=== PATIENT | male | born 1940 | race Caucasian/White ===

== ENCOUNTER 2018-12-24 10:22 | Emergency (ER) | payer MEDICARE ==
[2018-12-24 10:35] VITALS: RESP 18
[2018-12-24] MEDS ORDERED: methylPREDNISolone SOD SUCCI 125 MG/2 ML VIAL IM ONE (10:47)
[2018-12-24] MEDS ORDERED: FAMOTIDINE 20 MG TAB PO STA (10:47)
[2018-12-24] MEDS ORDERED: hydrOXYzine HCL 25 MG TAB PO STA (10:47)
--- NOTE | 2018-12-24 10:50 | ED ---
Skin/Abscess/FB HPI - General Chief complaint: Skin/Abscess/Foreign Body Stated complaint: Rash on head/back Time Seen by Provider: 12/24/18 10:43 Source: patient, RN notes reviewed Mode of arrival: ambulatory Limitations: no limitations - History of Present Illness Initial comments: 70-year-old male presents emergency Department chief complaint of rash. Patient states started couple days ago after using some new shampoo his never used before. Patient states primarily in the scalp states it's now, on his torso region. He states it's very itchy there is no pain associated with. Denies fevers or chills. Patient one dose of Benadryl and hydrocortisone cream. He did have some relief. Patient reports no fevers or chills. Patient offers no other complaints. - Related Data Home Medications Medication Instructions Recorded Confirmed Omeprazole [PriLOSEC] 20 mg PO DAILY 02/18/14 01/29/15 Terazosin [Hytrin] 2 mg PO HS 02/18/14 01/29/15 Gabapentin [Neurontin] 300 mg PO HS 09/13/14 01/29/15 Acetaminophen/Diphenhydramine 1 tab PO HS 09/19/14 01/29/15 [Tylenol PM 500-25mg] Melatonin 5 mg PO DAILY 01/29/15 01/29/15 Previous Rx's Medication Instructions Recorded Hydrocodone/Acetaminophen [[place] 1 - 2 each PO Q6HR PRN #30 tab 09/24/14 5-325] Amoxicillin/Potassium Clav 1 each PO Q12HR #20 tab 01/29/15 [Augmentin 875-125 Tablet] Famotidine [Pepcid] 20 mg PO BID #14 tablet 12/24/18 diphenhydrAMINE [Benadryl] 50 mg PO QID PRN #20 capsule 12/24/18 predniSONE 50 mg PO DAILY #5 tab 12/24/18 Allergies Allergy/AdvReac Type Severity Reaction Status Date / Time amoxicillin Allergy Rash/Hives Verified 12/24/18 10:35 Review of Systems ROS Statement: Those systems with pertinent positive or pertinent negative responses have been documented in the HPI. ROS Other: All systems not noted in ROS Statement are negative. Past Medical History Past Medical History: Asthma, Cancer, GERD/Reflux, Pneumonia, Prostate Disorder, Sleep Apnea/CPAP/BIPAP Additional Past Medical History / Comment(s): diverticulitis, KIDNEY STONES, ARTHRITIS, neuropathy, prostate cancer-brachytherapy radiation tx History of Any Multi-Drug Resistant Organisms: ESBL, Other MDRO Date of last positivie culture/infection: 01/29/2015 MDRO Pseudomonas; 02/25/2014 ESBL E.coli MDRO Source:: Urine-MDRO; Abdomen-ESBL Past Surgical History: No Surgical Hx Reported Additional Past Surgical History / Comment(s): colostomy, PICC line/removed Past Anesthesia/Blood Transfusion Reactions: No Reported Reaction Past Psychological History: No Psychological Hx Reported Smoking Status: Former smoker Past Alcohol Use History: Rare Past Drug Use History: None Reported - Past Family History Mother Family Medical History: AFIB, COPD Father Family Medical History: Hypertension, Myocardial Infarction ([place]) General Exam Limitations: no limitations General appearance: alert, in no apparent distress Head exam: Present: atraumatic, normocephalic. Absent: normal inspection (Diffuse erythema, small area of vesicles with papules) Eye exam: Present: normal appearance, PERRL, EOMI. Absent: scleral icterus, conjunctival injection, periorbital swelling ENT exam: Present: normal exam, normal oropharynx, mucous membranes moist Neck exam: Present: normal inspection, full ROM. Absent: tenderness, meningismus, lymphadenopathy Respiratory exam: Present: normal lung sounds bilaterally. Absent: respiratory distress, wheezes, rales, rhonchi, stridor Cardiovascular Exam: Present: regular rate, normal rhythm, normal heart sounds. Absent: systolic murmur, diastolic murmur, rubs, gallop, clicks Skin exam: Present: warm, dry, intact, normal color, rash (Primarily scalp, torso region there is small papules and vesicles, erythema consistent with contact dermatitis.) Course Vital Signs 12/24/18 10:34 Temperature 99.0 F Pulse Rate 79 Respiratory 18 Rate Blood Pressure 143/76 O2 Sat by Pulse 97 Oximetry Medical Decision Making - Medical Decision Making 78-year-old male presented for rash. Symptoms are more consistent with a contact dermatitis primarily in the torso and scalp region where the shampoo was applied. Patient we given oral steroids, continuation of Benadryl and Pepcid. Disposition Clinical Impression: Contact dermatitis, Allergic reaction Disposition: HOME SELF-CARE Condition: Stable Instructions (If sedation given, give patient instructions): Contact Dermatitis (ED) Additional Instructions: Please return to the Emergency Department if symptoms worsen or any other concerns. Prescriptions: diphenhydrAMINE [Benadryl] 50 mg PO QID PRN #20 capsule PRN Reason: Itching Famotidine [Pepcid] 20 mg PO BID #14 tablet predniSONE 50 mg PO DAILY #5 tab Is patient prescribed a controlled substance at d/c from ED?: No Referrals: Camelia Munoz MD [Primary Care Provider] - 1-2 days Time of Disposition: 10:50
[2018-12-24 11:42] VITALS: BP 127/65; PULSE 60; TEMP 98.2
== END 2018-12-24 11:42 | disposition home or self-care (01) ==
LOC: EC 10:22
DX: L23.9 Allergic contact dermatitis, unspecified cause (principal); K21.9 Gastro-esophageal reflux disease without esophagitis; Z85.46 Personal history of malignant neoplasm of prostate; G47.30 Sleep apnea, unspecified; Z99.89 Dependence on other enabling machines and devices; Z87.891 Personal history of nicotine dependence; Z79.899 Other long term (current) drug therapy; Z88.0 Allergy status to penicillin
CPT/HCPCS: 99282; 96372; J2930

== ENCOUNTER 2018-12-26 09:20 | Inpatient (IN) | payer MEDICARE ==
--- NOTE | 2018-12-26 10:26 | ED ---
Skin/Abscess/FB HPI <Koffi Amos - Last Filed: 12/26/18 11:24> - General Source: patient Mode of arrival: ambulatory <Rita Haynes - Last Filed: 12/26/18 11:33> - General Chief complaint: Skin/Abscess/Foreign Body Stated complaint: Poss shingles Time Seen by Provider: 12/26/18 09:59 - History of Present Illness Initial comments: 78-year-old male presented for chief complaint of rash. Patient states he is [place] Tuesday. He states a rash began Tuesday on his head. Patient states that then spread to his chest and back. Patient presented for evaluation the following day. Patient denies any fever or chills. She denies any tongue or lip swelling. Patient is unsure if he has had varicella in the past. He denies involvement of the eye. Pt states that the rash has spread slightly more areas of chest and back. Noticing some blisters. He states the area is very itchy. He states medications that he has been using have not seemed to help. Denies new medications prior to onset of symptoms. Pt states that the top of his head is particularly red. Remaining ROS (-). Upon arrival pt appears well. VS within acceptable limits, afebrile. (Rita Haynes) - Related Data Home Medications Medication Instructions Recorded Confirmed Omeprazole [PriLOSEC] 20 mg PO DAILY 02/18/14 12/26/18 Terazosin [Hytrin] 2 mg PO HS 02/18/14 12/26/18 Gabapentin [Neurontin] 300 mg PO HS 09/13/14 12/26/18 Allergies Allergy/AdvReac Type Severity Reaction Status Date / Time amoxicillin Allergy Rash/Hives Verified 12/26/18 09:39 Review of Systems ROS Other: All systems not noted in ROS Statement are negative. <Koffi Amos - Last Filed: 12/26/18 11:24> ROS Other: All systems not noted in ROS Statement are negative. <Rita Haynes - Last Filed: 12/26/18 11:33> ROS Statement: Those systems with pertinent positive or pertinent negative responses have been documented in the HPI. Past Medical History Past Medical History: Asthma, Cancer, GERD/Reflux, Pneumonia, Prostate Disorder, Sleep Apnea/CPAP/BIPAP Additional Past Medical History / Comment(s): diverticulitis, KIDNEY STONES, ARTHRITIS, neuropathy, prostate cancer-brachytherapy radiation tx History of Any Multi-Drug Resistant Organisms: ESBL, Other MDRO Date of last positivie culture/infection: 01/29/2015 MDRO Pseudomonas; 02/25/2014 ESBL E.coli MDRO Source:: Urine-MDRO; Abdomen-ESBL Past Surgical History: No Surgical Hx Reported Additional Past Surgical History / Comment(s): colostomy, PICC line/removed Past Anesthesia/Blood Transfusion Reactions: No Reported Reaction Past Psychological History: No Psychological Hx Reported Smoking Status: Current every day smoker Past Alcohol Use History: Rare Past Drug Use History: None Reported - Past Family History Mother Family Medical History: AFIB, COPD Father Family Medical History: Hypertension, Myocardial Infarction ([place]) <Rita Haynes Weston - Last Filed: 12/26/18 11:33> General Exam <Rita Haynes Weston - Last Filed: 12/26/18 11:33> - General Exam Comments Initial Comments: General: The patient is awake and alert, in no distress Eye: Pupils are equal, round and reactive to light, extra-ocular movements are intact. No nystagmus. There is normal conjunctiva bilaterally. No signs of icterus. Ears, nose, mouth and throat: There are moist mucous membranes and no oral lesions. Neck: The neck is supple, there is no tenderness or JVD. Cardiovascular: There is a regular rate and rhythm. No murmur, rub or gallop is appreciated. Respiratory: Lungs are clear to auscultation, respirations are non-labored, breath sounds are equal. No wheezes, stridor, rales, or rhonchi. Gastrointestinal: Soft, non-distended, non-tender abdomen without masses or organomegaly noted. There is no rebound or guarding present. Musculoskeletal: Normal ROM, no tenderness. Strength 5/5. Sensation intact. Pulses equal bilaterally 2+. Neurological: A&O x 3. CN II-XII intact, There are no obvious motor or sensory deficits. Coordination appears grossly intact. Speech is normal. Skin: Skin is warm and dry. Maculopapular rash on chest, and back, occasional vesicle. No confluent erythema, no dermatomal pattern. On scalp significant erythema, warmth and confluent blisters, right sided-excoriated. Psychiatric: Cooperative, appropriate mood & affect, normal judgment. (Rita Haynes) Course Vital Signs 12/26/18 09:25 Temperature 97.6 F Pulse Rate 94 Respiratory 20 Rate Blood Pressure 149/64 O2 Sat by Pulse 99 Oximetry Medical Decision Making <Koffi Amos - Last Filed: 12/26/18 11:24> <Rita Haynes - Last Filed: 12/26/18 11:33> - Medical Decision Making Patient reevaluated by myself, Dr. Amos. Patient does have area on the scalp, approximate half that could've been contacted dermatitis however does appear the least somewhat cellulitic at this point. Patient also has truncal rash that is diffuse and not fluid. This is mostly maculopapular however there is several areas of vesicles. Patient states no improvement of symptoms with steroids. Case was discussed with Dr. Robbins who had previously admitted this patient. He will admit covering for Dr. Munoz with consult for both dermatology as well as infectious disease. Patient is unclear if symptoms started from using a new shampoo or possibly a spider bite to the scalp. (Koffi Amos) Well-appearing 78-year-old male presented for rash. Upon inspection of the scalp there appears to be an area of excoration with confluent erythema and warmth to palpation. Secondary infection likely. I discussed case with attending provider Dr. Amos who evaluated patient, he recommended admission for IV abx for secondary infection with ID and dermatology consult for further evaluation of rash on patient trunk. Dr Robbins accepted admission. No further orders at this time. Consults placed. IV abx initiated with labs pending. (Rita Haynes) Disposition <Koffi Amos - Last Filed: 12/26/18 11:24> Is patient prescribed a controlled substance at d/c from ED?: No Time of Disposition: 11:33 Decision to Admit Reason: Admit from EC Decision Date: 12/26/18 Decision Time: 11:33 <Rita Haynes - Last Filed: 12/26/18 11:33> Clinical Impression: Cellulitis, Rash and nonspecific skin eruption Disposition: ADMITTED IP TO THIS HOSP Condition: Stable Referrals: Camelia Munoz MD [Primary Care Provider] - 1-2 days
[2018-12-26 11:53] LABS: Basophils # (A) 0.1 k/uL (0-0.2); Basophils % (A) 1 %; Eosinophils # (A) 0.2 k/uL (0-0.7); Eosinophils % (A) 1 %; HCT 40.2 % (39.0-53.0); Lymphocytes # (A) 2.5 k/uL (1.0-4.8); Lymphocytes % (A) 18 %; MCHC 32.3 g/dL (31.0-37.0); Mean Platelet Volume 6.8; Monocytes # (A) 1.1 k/uL (0-1.0); Monocytes % (A) 8 %; Neutrophils # (A) 9.7 k/uL (1.3-7.7); Neutrophils % (A) 68 %; Platelet Count 258 k/uL (150-450); RBC 4.32 m/uL (4.30-5.90); RDW 13.7 % (11.5-15.5); WBC 14.2 k/uL (3.8-10.6)
[2018-12-26] MEDS ORDERED: hydrOXYzine HCL 25 MG TAB PO STA (12:02)
[2018-12-26 12:08] LABS: Albumin 4.3 g/dL (3.5-5.0); Calcium 9.3 mg/dL (8.4-10.2); Potassium 3.6 mmol/L (3.5-5.1); Total Bilirubin 0.2 mg/dL (0.2-1.3); Total Protein 7.3 g/dL (6.3-8.2)
[2018-12-26] MEDS: NICOTINE 21MG/24HR PATCH TRANSDERM SCH (12:39)
[2018-12-26] MEDS ORDERED: ACETAMINOPHEN TAB 500 MG TAB PO STA (14:33)
[2018-12-26 14:49] VITALS: BMI 25.8
[2018-12-26] MEDS ORDERED: diphenhydrAMINE 50 MG/ML 1 ML VIAL IVP PRN (17:15)
[2018-12-26] MEDS ORDERED: ACETAMINOPHEN TAB 500 MG TAB PO PRN (17:16)
[2018-12-26] MEDS: MUPIROCIN 2% OINT 22 GM TUBE TOPICAL SCH ×2 (18:15→22:10)
[2018-12-26 21:23] LABS: Glucose,Whole Blood 138 mg/dL (75-99)
--- NOTE | 2018-12-26 22:04 | HP ---
HISTORY AND PHYSICAL DATE OF ADMISSION AND SERVICE: 12/26/2018 PRESENTING COMPLAINT: Rash. HISTORY OF PRESENTING COMPLAINT: This is a very pleasant 78-year-old patient of Dr. Munoz. Chronic stable medical conditions include COPD, osteoarthritis, sleep apnea; does not use his BiPAP anymore. The patient on Tuesday got a new shampoo from [employer] and used the shampoo on his head. Towards morning he thought he had had felt it was an insect bite on the scalp, and then it grew to an area of of redness and itching. Then yesterday he noticed a rounded area of infection on his chest and back, and that is when he decided to come in to the hospital. Patient denied any obvious fever but there was a lot of itching. There was no dermatomal pattern. ID and Dermatology were consulted from the ER. REVIEW OF SYSTEMS: CONSTITUTIONAL: Tired. HEENT: As above. RESPIRATORY: Baseline mild wheezing. CARDIOVASCULAR: None. GASTROINTESTINAL: None. GENITOURINARY: None. MUSCULOSKELETAL: Arthritic pain in joints. DERMATOLOGICAL: As above. LYMPHATICS: None. PSYCHIATRY: None. NEUROLOGICAL: None. PAST MEDICAL HISTORY: 1. COPD. 2. Sleep apnea. 3. Prostate cancer with bone metastases. 4. Kidney stones. 5. Osteoarthritis. 6. Nephrolithiasis. 7. Bilateral tinnitus. 8. Arthritis in bilateral knees. 9. Diverticulitis with abscess with colovesical fistula with diverting colostomy. PAST SURGICAL HISTORY: 1. Bowel resection. 2. Colostomy reversal. 3. Left hip arthroplasty. 4. Left wrist injury with surgery. SOCIAL HISTORY: Lives with his sister. Used to smoke cigarettes before. Now smokes cigars. 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 FAMILY HISTORY: Atrial fibrillation and COPD. HOME MEDICATIONS: 1. Hytrin 2 mg at bedtime. 2. Prilosec 20 mg daily. 3. Neurontin 300 mg at bedtime. ALLERGIES: AMOXICILLIN. PHYSICAL EXAMINATION: Temperature 97.6, pulse 94, respiration 20, blood pressure 149/64, pulse ox 99% on room air. GENERAL APPEARANCE: Average build. Sitting up. Not in distress. EYES: Pupils equal. Conjunctivae normal. HEENT: External appearance of nose and ears normal. Oral cavity normal. NECK: JVD not raised. Mass not palpable. RESPIRATORY: Effort normal. LUNGS: Decreased breath sounds. CARDIOVASCULAR: First and second sounds normal. No edema. ABDOMEN: Soft, non-tender. Liver and spleen not palpable. LYMPHATIC: No lymph node palpable in neck or axillae. PSYCHIATRY: Alert and oriented x3. Mood and affect normal. DERMATOLOGICAL: Area of redness on the scalp with skin breakdown and some tenderness. There are also macular spots with a raised area with fluid in there, rather scattered on the chest and the back, but not that many. NEUROLOGICAL: Pupils equal. Cranial nerves grossly intact. Power and sensation grossly intact. INVESTIGATIONS: White count 14.2, hemoglobin 13, increased neutrophils. Potassium 3.6, BUN 35, creatinine 1.02. ASSESSMENT: 1. This is a patient who 4 days ago used a new shampoo, then noticed what he thought was an insect or spider bite on the scalp. The clinical picture was more compatible with and/or secondary cellulitis streptococcus. The shampoo use may be just a red tate. It may be noted that the patient has received chemo in the past and patient may have a weakened immune system. 2. Chronic obstructive pulmonary disease in a current smoker. 3. Chronic nicotine dependence. Patient is currently smoking tobacco. 4. Obstructive sleep apnea. Does not use CPAP machine. 5. Primary osteoarthritis. PLAN: ID and Dermatology were consulted. Patient was started on IV Ancef. Home medications are resumed. Will also give Benadryl and give H2 aminta. Will hold off any steroids for right now, as this is all infection. We will also check patient's antibody levels to see if there is any cellular or humoral weakness. Care was discussed with the patient. Questions were answered. MMODL / IJN: [id number] /
[2018-12-26] MEDS: AMITRIPTYLINE HCL 50 MG TAB PO SCH (22:09)
[2018-12-26] MEDS: GABAPENTIN 300 MG CAP PO SCH (22:09)
[2018-12-26] MEDS: FAMOTIDINE 20 MG TAB PO SCH (22:09)
[2018-12-26] MEDS: INSULIN ASPART (NovoLOG) 100 UNIT/ML VIAL SQ SCH (22:10)
[2018-12-26] MEDS: DOXAZOSIN 2 MG TAB PO SCH (22:10)
[2018-12-26] MEDS: ENOXAPARIN 40 MG/0.4 ML SYRINGE SQ SCH ×2 (22:10→22:19)
--- NOTE | 2018-12-26 23:03 | P.CONS ---
History of Present Illness - Reason for Consult Consult date: 12/26/18 - Chief Complaint Itching - History of Present Illness 78-year-old male with a history of prostate carcinoma on hormonal manipulation therapy versus doing modestly well until the sudden onset of a pruritic rash on his scalp. He was originally thought due to a change of his shampoo. He did present to the emergency center on 12/24/2018 and was treated with topical medication and systemic steroid. The patient has had worsening of his status. He is developed worsening pruritus was unable to rest at all last night. The rash is crusted on his scalp is uncomfortable and pruritic. It is noticed multiple small new pruritic areas that have started to develop. The patient has a history of prior shingles there was quite localized. He does not believe he has had any fever at all. His having no respiratory symptoms. He does not recall any new exposures but he is working out in the yard. They do have a pet dog but it is not new. Review of Systems HEENT:Denies headache or acute visual change. Denies sinus or mouth discomforts. Denies neck stiffness or pain. Denies significant oral cavity pain. Denies difficulty on swallowing. Lungs: Denies significant shortness of breath, cough, sputum production, or hemoptysis. Cardiovascular: Denies significant shortness of breath, chest pain, chest wall pain, orthopnea, dyspnea on exertion, syncope Gastrointestinal:Denies nausea, vomiting, diarrhea, constipation, hematemesis, melena, hematochezia. No no significant change of bowel habit noticed. Musculoskeletal: denies significant myalgias or arthralgias. No new joint swelling. Denies new back pain. Skin: Significantly pruritic rash Neuro: Denies headache or visual change. Denies any new onset weakness or difficulty with ambulation. Denies falls or seizures. Psychiatric:Denies anxiety or depression. Endocrine: Denies significant fatigue, denies significant weight loss or weight gain. 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 History of Any Multi-Drug Resistant Organisms: ESBL, Other MDRO Year Discovered:: 01/29/2015 MDRO Pseudomonas; 02/25/2014 ESBL E.coli MDRO Source:: Urine-MDRO; Abdomen-ESBL Past Surgical History: No Surgical Hx Reported, Bowel Resection, Joint Replacement, Orthopedic Surgery Additional Past Surgical History / Comment(s): Colostomy with reversal, L total hip arthroplasty, EGD, colonoscopy with bening polypectomy, lithotripsy, L wrist injury with surgery, picc line Past Anesthesia/Blood Transfusion Reactions: No Reported Reaction Smoking Status: Current every day smoker - Past Family History Mother Family Medical History: AFIB, COPD Father Family Medical History: Hypertension, Myocardial Infarction ([place]) Medications and Allergies Home Medications and Allergies Comment(s): Current Medications Acetaminophen (Tylenol Tab) 500 mg PO Q4HR PRN PRN Reason: Fever and/ or Pain Amitriptyline HCl (Elavil) 50 mg PO [facility] Last Admin: 12/26/18 22:09 Dose: 50 mg Documented by: Diphenhydramine HCl (Benadryl) 50 mg IVP Q6HR [facility] Doxazosin Mesylate (Cardura) 2 mg PO [facility] Last Admin: 12/26/18 22:10 Dose: 2 mg Documented by: Enoxaparin Sodium (Lovenox) 40 mg SQ Q24H [facility] Last Admin: 12/26/18 22:19 Dose: Not Given Documented by: Famotidine (Pepcid) 40 mg PO BID [facility] Last Admin: 12/26/18 22:09 Dose: 40 mg Documented by: Gabapentin (Neurontin) 300 mg PO [facility] Last Admin: 12/26/18 22:09 Dose: 300 mg Documented by: Cefazolin Sodium 1,000 mg/ (Sodium Chloride) 50 mls @ 100 mls/hr IVPB Q8HR [facility] Last Admin: 12/26/18 17:44 Dose: 100 mls/hr Documented by: Insulin Aspart (Novolog) [address] [facility]; Protocol Last Admin: 12/26/18 22:10 Dose: 1 unit Documented by: Mupirocin (Bactroban Oint) 1 applic TOPICAL TID [facility] Last Admin: 12/26/18 22:10 Dose: 1 applic Documented by: Nicotine (Habitrol 21mg/24hr Patch) 1 patch TRANSDERM DAILY [facility] Last Admin: 12/26/18 12:39 Dose: 1 patch Documented by: Home Medications Medication Instructions Recorded Confirmed Type Omeprazole [PriLOSEC] 20 mg PO DAILY 02/18/14 12/26/18 History Terazosin [Hytrin] 2 mg PO HS 02/18/14 12/26/18 History Gabapentin [Neurontin] 300 mg PO HS 09/13/14 12/26/18 History Allergies Allergy/AdvReac Type Severity Reaction Status Date / Time amoxicillin Allergy Rash/Hives Verified 12/26/18 09:39 Physical Exam Vitals: Vital Signs Temp Pulse Pulse Resp BP BP Pulse Ox 12/26/18 21:27 97.8 F 67 18 147/70 96 12/26/18 18:45 97.7 F 12/26/18 17:03 75 16 132/62 96 12/26/18 16:39 97.3 F L 66 18 132/61 98 12/26/18 14:12 98.0 F 72 16 140/80 98 12/26/18 11:38 97.2 F L 78 16 122/61 98 12/26/18 09:25 97.6 F 94 20 149/64 99 Intake and Output 12/26/18 12/26/18 12/26/18 06:59 14:59 22:59 Other: Weight 81.647 kg HEENT: Anicteric conjunctiva are pink and moist nasal mucosa grossly intact wi thout significant lesions, there is no thrush. Neck: The neck is supple without significant lymphadenopathy or thyromegaly. Lungs: Good bilateral air entry without significant crackles or wheezing. There is no significant bronchial sounds. There is no egophony or dullness. Heart: Regular rate and rhythm with an audible S1-S2, no S3 no S4. There is no significant murmur click or rub, PMI was nondisplaced. Abdomen: Positive bowel sounds soft and nontender without palpable masses or organomegaly. There was no guarding or rebound. Extremities: The upper extremities have excellent pulses they are symmetric, no significant petechiae or telangiectasia. No splinter hemorrhages were noted. The lower extremities are free from significant edema. The peripheral pulses were 2+ and symmetric. Neuro: Awake alert oriented to person place and time. There are no acute new gross focal sensory motor deficits. Skin erythema to the scalp with eschar on right lateral aspect with scant drainage. Mulitple small erythmatous lesions on the face,chest,back and right leg. Are puritic but not painful. Not pustules, some are vesicular like. Results CBC & Chem 7: 12/26/18 11:35 12/26/18 11:35 Labs: Abnormal Lab Results - Last 24 Hours (Table) 12/26/18 12/26/18 12/26/18 Range/Units 11:35 11:35 21:22 WBC 14.2 H (3.8-10.6) k/uL Neutrophils # 9.7 H (1.3-7.7) k/uL Monocytes # 1.1 H (0-1.0) k/uL Chloride 109 H (98-107) mmol/L BUN 35 H (9-20) mg/dL Glucose 125 H (74-99) mg/dL POC Glucose (mg/dL) 138 H (75-99) mg/dL Laboratory Results WBC 14.2 k/uL (3.8-10.6) H 12/26/18 11:35 RBC 4.32 m/uL (4.30-5.90) 12/26/18 11:35 Hgb 13.0 gm/dL (13.0-17.5) 12/26/18 11:35 Hct 40.2 % (39.0-53.0) 12/26/18 11:35 MCV 93.0 fL (80.0-100.0) 12/26/18 11:35 MCH 30.0 pg (25.0-35.0) 12/26/18 11:35 MCHC 32.3 g/dL (31.0-37.0) 12/26/18 11:35 RDW 13.7 % (11.5-15.5) 12/26/18 11:35 Plt Count 258 k/uL (150-450) 12/26/18 11:35 Neutrophils % 68 % 12/26/18 11:35 Lymphocytes % 18 % 12/26/18 11:35 Monocytes % 8 % 12/26/18 11:35 Eosinophils % 1 % 12/26/18 11:35 Basophils % 1 % 12/26/18 11:35 Neutrophils # 9.7 k/uL (1.3-7.7) H 12/26/18 11:35 Lymphocytes # 2.5 k/uL (1.0-4.8) 12/26/18 11:35 Monocytes # 1.1 k/uL (0-1.0) H 12/26/18 11:35 Eosinophils # 0.2 k/uL (0-0.7) 12/26/18 11:35 Basophils # 0.1 k/uL (0-0.2) 12/26/18 11:35 Manual Slide Review Performed 12/26/18 11:35 Sodium 142 mmol/L (137-145) 12/26/18 11:35 Potassium 3.6 mmol/L (3.5-5.1) 12/26/18 11:35 Chloride 109 mmol/L (98-107) H 12/26/18 11:35 Carbon Dioxide 25 mmol/L (22-30) 12/26/18 11:35 Anion Gap 8 mmol/L 12/26/18 11:35 BUN 35 mg/dL (9-20) H 12/26/18 11:35 Creatinine 1.02 mg/dL (0.66-1.25) 12/26/18 11:35 Est GFR (CKD-EPI)AfAm 81 (>60 ml/min/1.73 sqM) 12/26/18 11:35 Est GFR (CKD-EPI)NonAf 70 (>60 ml/min/1.73 sqM) 12/26/18 11:35 Glucose 125 mg/dL (74-99) H 12/26/18 11:35 POC Glucose (mg/dL) 138 mg/dL (75-99) H 12/26/18 21:22 POC Glu Certified Activities Director ID Dye, Shanon 12/26/18 21:22 Calcium 9.3 mg/dL (8.4-10.2) 12/26/18 11:35 Total Bilirubin 0.2 mg/dL (0.2-1.3) 12/26/18 11:35 AST 18 U/L (17-59) 12/26/18 11:35 ALT 26 U/L (21-72) 12/26/18 11:35 Alkaline Phosphatase 72 U/L (38-126) 12/26/18 11:35 Total Protein 7.3 g/dL (6.3-8.2) 12/26/18 11:35 Albumin 4.3 g/dL (3.5-5.0) 12/26/18 11:35 Assessment and Plan (1) Rash and nonspecific skin eruption Narrative/Plan: 78 year old man with history of prostate cancer on hormonal therapy with new onset of rash to the scalp which has now progress to involve the face, chest and back.. New lesion on left leg no noted. Did use new shampoo at start of the rash of the scalp. Now is miserable because of the puritis. Will use antibiotic with ancef for the likelyhood of MSSA infection. Mupiriocin to the scalp to help with ulceration Amitriptyline added at nighttime to help with pruritus and sleep Culture to be obtained of the scalp to help further direct antibiotic therapy. Case is discussed with primary and dermatology consult was also requested. The patient has had prior shingles outbreak in the past, but does not relate this feels like that, he is having pruritus rather than discomfort. Of note he does not have fever. Current Visit: Yes Status: Acute Code(s): R21 - RASH AND OTHER NONSPECIFIC SKIN ERUPTION SNOMED Code(s): 717550180
[2018-12-26] MEDS: diphenhydrAMINE 50 MG/ML 1 ML VIAL IVP SCH (23:09)
[2018-12-27] MEDS: diphenhydrAMINE 50 MG/ML 1 ML VIAL IVP SCH ×4 (05:54→23:36)
[2018-12-27 07:26] LABS: Glucose,Whole Blood 103 mg/dL (75-99)
[2018-12-27] MEDS ORDERED: PANTOPRAZOLE 40 MG TABLET PO SCH (07:30)
[2018-12-27] MEDS: INSULIN ASPART (NovoLOG) 100 UNIT/ML VIAL SQ SCH ×4 (07:32→21:15)
[2018-12-27] MEDS: FAMOTIDINE 20 MG TAB PO SCH ×2 (08:12→21:00)
[2018-12-27] MEDS: NICOTINE 21MG/24HR PATCH TRANSDERM SCH (08:12)
[2018-12-27] MEDS: MUPIROCIN 2% OINT 22 GM TUBE TOPICAL SCH ×3 (08:13→23:33)
[2018-12-27 12:11] LABS: Glucose,Whole Blood 123 mg/dL (75-99)
[2018-12-27 17:26] LABS: Glucose,Whole Blood 112 mg/dL (75-99)
[2018-12-27 20:39] LABS: Glucose,Whole Blood 182 mg/dL (75-99)
[2018-12-27] MEDS: ENOXAPARIN 40 MG/0.4 ML SYRINGE SQ SCH (20:59)
[2018-12-27] MEDS: GABAPENTIN 300 MG CAP PO SCH (21:00)
[2018-12-27] MEDS: AMITRIPTYLINE HCL 50 MG TAB PO SCH (21:00)
[2018-12-27] MEDS: CALCIUM ACETATE-ALUMINUM SULF 1 EACH PACKET TOPICAL SCH (21:01)
[2018-12-27] MEDS: DOXAZOSIN 2 MG TAB PO SCH (21:02)
[2018-12-27] MEDS: valACYclovir HCL 1,000 MG TABLET PO SCH ×2 (21:02→23:36)
[2018-12-27] MEDS: ERYTHROMYCIN 2% TOPICAL SOLN 60 ML BTL TOPICAL SCH (21:03)
[2018-12-27] MEDS: CLOBETASOL PROP 0.05% CR 15GM TOPICAL SCH (21:04)
--- NOTE | 2018-12-27 22:37 | PN ---
PROGRESS NOTE DATE OF SERVICE: 12/27/2018. PRESENTING COMPLAINT: . INTERVAL HISTORY: This patient admitted was admitted with affecting primarily the scalp and the torso. Some redness has started to go down, also on the torso started to get down. Tolerating a diet. No fever. No chills. Getting IV antibiotics. REVIEW OF SYSTEMS: Done for constitutional, cardiovascular, GI, pulmonary; relevant findings as above. CURRENT MEDICATIONS: Reviewed, that include IV Ancef and topical Bactroban. PHYSICAL EXAMINATION: Temperature 97.3, pulse 54, respiratory rate 18, blood pressure 146/69, pulse ox 98% on room air. GENERAL APPEARANCE: Lying in bed comfortable. EYES: Pupils equal. Conjunctivae normal. HEENT: Scalp shows some area of redness and breakdown, though less redness. CARDIOVASCULAR: First and second sounds normal. No edema. ABDOMEN: Soft, nontender. Liver and spleen not palpable. PSYCHIATRY: Alert and oriented x3. Mood and affect normal. SKIN: Torso macular spots with raised areas, now more scattered. INVESTIGATIONS: Accu-Cheks are noted. ASSESSMENT: 1. Acute severe with some dissemination to the torso with clinical response. 2. COPD in a current smoker. 3. Chronic nicotine dependence. Patient is currently smoking tobacco. 4. Obstructive sleep apnea, does not use CPAP machine. 5. Primary osteoarthritis. PLAN: Patient is doing really well. The patient is responding. Currently on IV antibiotics. Probably expect at least a day or 2 more in the hospital depending on how he improves. Will discuss further with Dr. Monahan. The patient's immunological profile has been requested. MMODL / IJN: [id number] /
--- NOTE | 2018-12-27 22:55 | CONS ---
CONSULTATION HISTORY: Thank you for asking me to evaluate your patient, 78-year-old male with current dermatologic complaints of a rash on the scalp and the trunk, which we were consulted to evaluate. Patient states the rash has been present for approximately 5-6 days and he states he used a new [id number] shampoo prior to rash occurring. Patient states the rash was itch, however, the itching has improved since he has been admitted yesterday. The patient states the rash has improved since receiving IV antibiotics and topical mupirocin after being admitted yesterday as well. PAST MEDICAL HISTORY: Prostate cancer with bone metastasis, COPD, sleep apnea, osteoarthritis, kidney stones, diverticulitis with abscess with colovesical fistula and diverting colostomy. PAST SURGICAL HISTORY: Bowel resection, colostomy reversal, left hip arthroplasty, left wrist injury with surgery. FAMILY MEDICAL HISTORY: Noncontributory. SOCIAL: The patient does smoke cigars. MEDICATIONS: See chart. ALLERGIES: Allergies amoxicillin. PHYSICAL EXAMINATION: On examination, there is marked erythema, crusting and a few vesicles present with some purulent drainage on the right parietal scalp. There are few crusted papules scattered over the back. ASSESSMENT AND PLAN: Given the patient's history of metastatic prostate cancer, the differential diagnosis we would consider disseminated herpes zoster with secondary infection on the scalp versus folliculitis with a secondary infection. TREATMENT: 1. [place]omeboro soaks, apply soap to the area on the scalp for 10 minutes twice a day for 3 days. 2. Clobetasol cream 0.05% applied b.i.d. to affected area on the scalp for 2 weeks. 3. Valtrex 1 g tablets take 1 pill t.i.d. for 7 days. 4. Erythromycin solution apply b.i.d. to affected areas on back. 5. Continue mupirocin and IV antibiotics per Infectious Disease for secondary bacterial infection. 6. Viral culture ordered for varicella zoster. 7. IgG and IgM ordered for varicella zoster virus. If you have any questions, you can give me a call at [phone]. ADRIANNE / KANE: [phone] /
--- NOTE | 2018-12-27 23:55 | P.PN ---
Subjective Progress Note Date: 12/27/18 78-year-old male with a history of prostate carcinoma on hormonal manipulation therapy versus doing modestly well until the sudden onset of a pruritic rash on his scalp. He was originally thought due to a change of his shampoo. He did present to the emergency center on 12/24/2018 and was treated with topical medication and systemic steroid. The patient has had worsening of his status. He is developed worsening pruritus was unable to rest at all last night. The rash is crusted on his scalp is uncomfortable and pruritic. It is noticed multiple small new pruritic areas that have started to develop. The patient has a history of prior shingles there was quite localized. He does not believe he has had any fever at all. His having no respiratory symptoms. He does not recall any new exposures but he is working out in the yard. They do have a pet dog but it is not new. Dec 27 2018 patient is feeling somewhat better today. The intense pruritus has resolved. Still has some pain to the scalp. Is having some irritation to his right ear also. Denies fevers or chills. Continues to have the rash but seems to be improving. Objective - Vital Signs Vital signs: Vital Signs Temp 98.0 F 12/27/18 13:17 Pulse 63 12/27/18 13:17 Resp 18 12/27/18 15:44 BP 150/74 12/27/18 13:17 Pulse Ox 98 12/27/18 13:17 Intake & Output 12/27/18 12/27/18 12/28/18 06:59 18:59 06:59 Other: Voiding Method Toilet # Voids 1 3 0 - Exam HEENT: Anicteric conjunctiva are pink and moist nasal mucosa grossly intact without significant lesions, there is no thrush. Neck: The neck is supple without significant lymphadenopathy or thyromegaly. Lungs: Good bilateral air entry without significant crackles or wheezing. There is no significant bronchial sounds. There is no egophony or dullness. Heart: Regular rate and rhythm with an audible S1-S2, no S3 no S4. There is no significant murmur click or rub, PMI was nondisplaced. Abdomen: Positive bowel sounds soft and nontender without palpable masses or organomegaly. There was no guarding or rebound. Extremities: The upper extremities have excellent pulses they are symmetric, no significant petechiae or telangiectasia. No splinter hemorrhages were noted. The lower extremities are free from significant edema. The peripheral pulses were 2+ and symmetric. Neuro: Awake alert oriented to person place and time. There are no acute new gross focal sensory motor deficits. Skin erythema to the scalp with eschar on right lateral aspect with scant drainage. Mulitple small erythmatous lesions on the face,chest,back and right leg. Today several have started to dry up. There are no longer severely pruritic and only minimally uncomfortable. - Labs CBC & Chem 7: 12/26/18 11:35 12/26/18 11:35 Labs: Abnormal Lab Results - Last 24 Hours (Table) 12/27/18 12/27/18 12/27/18 Range/Units 07:24 12:09 17:23 POC Glucose (mg/dL) 103 H 123 H 112 H (75-99) mg/dL 12/27/18 Range/Units 20:37 POC Glucose (mg/dL) 182 H (75-99) mg/dL Microbiology - Last 24 Hours (Table) 12/26/18 11:35 Blood Culture - Preliminary Blood No Growth after 24 hours 12/26/18 18:00 Gram Stain - Preliminary Scalp Wound Culture - Preliminary Laboratory Results WBC 14.2 k/uL (3.8-10.6) H 12/26/18 11:35 RBC 4.32 m/uL (4.30-5.90) 12/26/18 11:35 Hgb 13.0 gm/dL (13.0-17.5) 12/26/18 11:35 Hct 40.2 % (39.0-53.0) 12/26/18 11:35 MCV 93.0 fL (80.0-100.0) 12/26/18 11:35 MCH 30.0 pg (25.0-35.0) 12/26/18 11:35 MCHC 32.3 g/dL (31.0-37.0) 12/26/18 11:35 RDW 13.7 % (11.5-15.5) 12/26/18 11:35 Plt Count 258 k/uL (150-450) 12/26/18 11:35 Neutrophils % 68 % 12/26/18 11:35 Lymphocytes % 18 % 12/26/18 11:35 Monocytes % 8 % 12/26/18 11:35 Eosinophils % 1 % 12/26/18 11:35 Basophils % 1 % 12/26/18 11:35 Neutrophils # 9.7 k/uL (1.3-7.7) H 12/26/18 11:35 Lymphocytes # 2.5 k/uL (1.0-4.8) 12/26/18 11:35 Monocytes # 1.1 k/uL (0-1.0) H 12/26/18 11:35 Eosinophils # 0.2 k/uL (0-0.7) 12/26/18 11:35 Basophils # 0.1 k/uL (0-0.2) 12/26/18 11:35 Manual Slide Review Performed 12/26/18 11:35 Sodium 142 mmol/L (137-145) 12/26/18 11:35 Potassium 3.6 mmol/L (3.5-5.1) 12/26/18 11:35 Chloride 109 mmol/L (98-107) H 12/26/18 11:35 Carbon Dioxide 25 mmol/L (22-30) 12/26/18 11:35 Anion Gap 8 mmol/L 12/26/18 11:35 BUN 35 mg/dL (9-20) H 12/26/18 11:35 Creatinine 1.02 mg/dL (0.66-1.25) 12/26/18 11:35 Est GFR (CKD-EPI)AfAm 81 (>60 ml/min/1.73 sqM) 12/26/18 11:35 Est GFR (CKD-EPI)NonAf 70 (>60 ml/min/1.73 sqM) 12/26/18 11:35 Glucose 125 mg/dL (74-99) H 12/26/18 11:35 POC Glucose (mg/dL) 182 mg/dL (75-99) H 12/27/18 20:37 POC Glu Supervisor [employer]ation [employer] ID Leela Grant 12/27/18 20:37 Calcium 9.3 mg/dL (8.4-10.2) 12/26/18 11:35 Total Bilirubin 0.2 mg/dL (0.2-1.3) 12/26/18 11:35 AST 18 U/L (17-59) 12/26/18 11:35 ALT 26 U/L (21-72) 12/26/18 11:35 Alkaline Phosphatase 72 U/L (38-126) 12/26/18 11:35 Total Protein 7.3 g/dL (6.3-8.2) 12/26/18 11:35 Albumin 4.3 g/dL (3.5-5.0) 12/26/18 11:35 Microbiology 12/26/18 11:35 Blood Blood Culture - Preliminary No Growth after 24 hours 12/26/18 18:00 Scalp Gram Stain - Preliminary 12/26/18 18:00 Scalp Wound Culture - Preliminary Assessment and Plan (1) Rash and nonspecific skin eruption Narrative/Plan: 78 year old man with history of prostate cancer on hormonal therapy with new onset of rash to the scalp which has now progress to involve the face, chest and back.. New lesion on left leg no noted. Did use new shampoo at start of the rash of the scalp. Now is miserable because of the puritis. Will use antibiotic with ancef for the likelyhood of MSSA infection. Mupiriocin to the scalp to help with ulceration Amitriptyline added at nighttime to help with pruritus and sleep Culture to be obtained of the scalp to help further direct antibiotic therapy. Case is discussed with primary and dermatology consult was also requested. The patient has had prior shingles outbreak in the past, but does not relate this feels like that, he is having pruritus rather than discomfort. Of note he does not have fever. 12/27/2018 the patient is having some improvement. The severe pruritus has resolved with antibiotic therapy and amitriptyline at at bedtime. This will continue for now. Cultures are in process. Continue with topical therapy to the scalp. Patient complaining of some irritation to the right ear otic drops or ordered. Current Visit: Yes Status: Acute Code(s): R21 - RASH AND OTHER NONSPECIFIC SKIN ERUPTION SNOMED Code(s): 276412701
[2018-12-28] MEDS: diphenhydrAMINE 50 MG/ML 1 ML VIAL IVP SCH ×4 (06:22→23:26)
[2018-12-28 07:18] LABS: Glucose,Whole Blood 104 mg/dL (75-99)
[2018-12-28] MEDS: CALCIUM ACETATE-ALUMINUM SULF 1 EACH PACKET TOPICAL SCH ×2 (07:48→21:54)
[2018-12-28] MEDS: NICOTINE 21MG/24HR PATCH TRANSDERM SCH (07:48)
[2018-12-28] MEDS: valACYclovir HCL 1,000 MG TABLET PO SCH ×3 (07:48→21:54)
[2018-12-28] MEDS: INSULIN ASPART (NovoLOG) 100 UNIT/ML VIAL SQ SCH ×4 (07:48→22:08)
[2018-12-28] MEDS: FAMOTIDINE 20 MG TAB PO SCH ×2 (07:48→21:53)
[2018-12-28] MEDS: MUPIROCIN 2% OINT 22 GM TUBE TOPICAL SCH ×3 (07:49→21:55)
[2018-12-28] MEDS: CLOBETASOL PROP 0.05% CR 15GM TOPICAL SCH ×2 (07:49→21:55)
[2018-12-28] MEDS: ERYTHROMYCIN 2% TOPICAL SOLN 60 ML BTL TOPICAL SCH ×2 (07:50→21:55)
[2018-12-28 09:38] LABS: HCT 41.8 % (39.0-53.0); HGB 13.4 gm/dL (13.0-17.5); MCH 29.5 pg (25.0-35.0); MCV 92.1 fL (80.0-100.0); Mean Platelet Volume 7.1; Platelet Count 228 k/uL (150-450); RBC 4.55 m/uL (4.30-5.90); RDW 14.5 % (11.5-15.5); WBC 11.5 k/uL (3.8-10.6)
[2018-12-28 10:05] LABS: Anion Gap 7 mmol/L; Blood Urea Nitrogen 21 mg/dL (9-20); Carbon Dioxide 28 mmol/L (22-30); Chloride 103 mmol/L (98-107); Glucose 134 mg/dL (74-99); Potassium 3.9 mmol/L (3.5-5.1); Sodium 138 mmol/L (137-145)
[2018-12-28 11:57] LABS: Glucose,Whole Blood 105 mg/dL (75-99)
[2018-12-28 13:10] LABS: T4/T8 Ratio (CD4:CD8) 4.2 (1.0-3.7)
[2018-12-28 13:21] LABS: Band Neutrophils % 1 %; Eosinophils # (M) 0.35 k/uL (0-0.7); Myelocytes # (M) 0.12 k/uL (0); Myelocytes % 1 %; Nucleated Red Blood Cells 0 /100 WBC (0-0)
[2018-12-28 13:23] LABS: Lymphocytes # (M) 3.22 k/uL (1.0-4.8); Metamyelocytes # (M) 0.12 k/uL (0); Metamyelocytes % 1 %; Monocytes # (M) 1.15 k/uL (0-1.0); Neutrophils % (M) 58 %; Total Cells Counted 200
[2018-12-28 16:52] LABS: Glucose,Whole Blood 118 mg/dL (75-99)
[2018-12-28 20:21] LABS: Glucose,Whole Blood 156 mg/dL (75-99)
[2018-12-28] MEDS: AMITRIPTYLINE HCL 50 MG TAB PO SCH (21:53)
[2018-12-28] MEDS: DOXAZOSIN 2 MG TAB PO SCH (21:54)
[2018-12-28] MEDS: ENOXAPARIN 40 MG/0.4 ML SYRINGE SQ SCH (21:54)
[2018-12-28] MEDS: GABAPENTIN 300 MG CAP PO SCH (21:55)
[2018-12-29] MEDS: diphenhydrAMINE 50 MG/ML 1 ML VIAL IVP SCH ×2 (05:23→11:07)
[2018-12-29 06:46] VITALS: BP 97/57; PULSE 64; TEMP 97.7
[2018-12-29 07:03] LABS: Glucose,Whole Blood 99 mg/dL (75-99)
[2018-12-29] MEDS: ERYTHROMYCIN 2% TOPICAL SOLN 60 ML BTL TOPICAL SCH (07:05)
[2018-12-29] MEDS: NICOTINE 21MG/24HR PATCH TRANSDERM SCH (07:05)
[2018-12-29] MEDS: FAMOTIDINE 20 MG TAB PO SCH (07:05)
[2018-12-29] MEDS: CALCIUM ACETATE-ALUMINUM SULF 1 EACH PACKET TOPICAL SCH (07:06)
[2018-12-29] MEDS: INSULIN ASPART (NovoLOG) 100 UNIT/ML VIAL SQ SCH ×2 (07:07→12:50)
[2018-12-29] MEDS: valACYclovir HCL 1,000 MG TABLET PO SCH (07:07)
[2018-12-29] MEDS: MUPIROCIN 2% OINT 22 GM TUBE TOPICAL SCH (07:08)
--- NOTE | 2018-12-29 07:26 | PN ---
PROGRESS NOTE DATE OF SERVICE: 12/28/2018 PRESENTING COMPLAINT: Cellulitis. INTERVAL HISTORY: Patient admitted with a rash on the scalp and the torso. Itching is greatly improved. The rash is drying up. Redness on the scalp is also improving. Tolerating a diet. REVIEW OF SYSTEMS: Done for constitutional, cardiovascular, GI, pulmonary, dermatologic; relevant findings above. CURRENT MEDICATIONS: Current medications are reviewed that include IV Ancef, Bactroban, valacyclovir was added per Dermatology. PHYSICAL EXAMINATION: On examination, afebrile, pulse 72, respiration 16, blood pressure 126/71, pulse ox 96% on room air. GENERAL APPEARANCE: Comfortable. EYES: Pupils equal. Conjunctivae normal. HENT: Scalp shows decreased area of redness and the bogginess is much improved. CARDIOVASCULAR: First and second sounds normal. No edema. ABDOMEN: Soft, nontender. Liver and spleen not palpable. PSYCHIATRY: Alert and oriented x3. Mood and affect normal. DERMATOLOGICAL: The raised spots on the torso are all now become macular. INVESTIGATIONS: Varicella-zoster virus IgG positive. ASSESSMENT: 1. Acute severe erysipelas with some lesions on the torso. This appears to be less likely shingles/varicella-zoster. 2. Chronic obstructive pulmonary disease in a current smoker. 3. Chronic nicotine dependence. Patient smokes tobacco. 4. Obstructive sleep apnea, does not use CPAP. 5. Primary osteoarthritis. PLAN: Continue current medication and treatment plan. Will give another 24 hours and then discuss with Dr. Monahan about discharge. MMODL / IJN: [id number] /
[2018-12-29] MEDS: CLOBETASOL PROP 0.05% CR 15GM TOPICAL SCH (08:02)
[2018-12-29 08:40] VITALS: RESP 16
--- NOTE | 2018-12-29 09:43 | P.PN ---
Subjective Progress Note Date: 12/29/18 78-year-old male with a history of prostate carcinoma on hormonal manipulation therapy versus doing modestly well until the sudden onset of a pruritic rash on his scalp. He was originally thought due to a change of his shampoo. He did present to the emergency center on 12/24/2018 and was treated with topical medication and systemic steroid. The patient has had worsening of his status. He is developed worsening pruritus was unable to rest at all last night. The rash is crusted on his scalp is uncomfortable and pruritic. It is noticed multiple small new pruritic areas that have started to develop. The patient has a history of prior shingles there was quite localized. He does not believe he has had any fever at all. His having no respiratory symptoms. He does not recall any new exposures but he is working out in the yard. They do have a pet dog but it is not new. Dec 27 2018 patient is feeling somewhat better today. The intense pruritus has resolved. Still has some pain to the scalp. Is having some irritation to his right ear also. Denies fevers or chills. Continues to have the rash but seems to be improving. 12/29/2018 patient now has snipping improvement of the rash. That which was on the chest abdomen and upper limbs enhance try to considerably. There is only small areas of erythema better now persistent. On the vesicular-looking areas on the left leg. The patient remains without fever or chill. He feels considerably better than admission. The severe pruritus has completely resolved. Objective - Vital Signs Vital signs: Vital Signs Temp 97.7 F 12/29/18 06:45 Pulse 64 12/29/18 06:45 Resp 16 12/29/18 08:00 BP 97/57 12/29/18 06:45 Pulse Ox 96 12/29/18 06:45 Intake & Output 12/28/18 12/29/18 12/29/18 18:59 06:59 18:59 Intake Total 400 Balance 400 Intake: Oral 400 Other: Voiding Method Toilet Toilet # Voids 4 2 # Bowel Movements 1 0 - Exam HEENT: Anicteric conjunctiva are pink and moist nasal mucosa grossly intact without significant lesions, there is no thrush. Neck: The neck is supple without significant lymphadenopathy or thyromegaly. Lungs: Good bilateral air entry without significant crackles or wheezing. There is no significant bronchial sounds. There is no egophony or dullness. Heart: Regular rate and rhythm with an audible S1-S2, no S3 no S4. There is no significant murmur click or rub, PMI was nondisplaced. Abdomen: Positive bowel sounds soft and nontender without palpable masses or organomegaly. There was no guarding or rebound. Extremities: The upper extremities have excellent pulses they are symmetric, no significant petechiae or telangiectasia. No splinter hemorrhages were noted. The lower extremities are free from significant edema. The peripheral pulses were 2+ and symmetric. Neuro: Awake alert oriented to person place and time. There are no acute new gross focal sensory motor deficits. Skin erythema to the scalp with eschar on right lateral aspect with scant drainage. Mulitple small erythmatous lesions on the face,chest,back and right leg. Further improvement is noticed. The left leg as he only area still appears to be slightly vesicular. The other numerous skin lesions have dried without any drainage. No other new lesions are seen. No rash. The scalp is improved with the application of the Domeboro soak. - Labs CBC & Chem 7: 12/28/18 09:04 12/28/18 09:04 Labs: Abnormal Lab Results - Last 24 Hours (Table) 12/27/18 12/28/18 12/28/18 Range/Units 10:14 09:04 09:04 WBC 11.5 H (3.8-10.6) k/uL Monocytes # (Manual) 1.15 H (0-1.0) k/uL Metamyelocytes # (Man) 0.12 H (0) k/uL Myelocytes # (Manual) 0.12 H (0) k/uL BUN 21 H (9-20) mg/dL Glucose 134 H (74-99) mg/dL POC Glucose (mg/dL) (75-99) mg/dL CD4/CD8 Ratio 4.2 H (1.0-3.7) 12/28/18 12/28/18 12/28/18 Range/Units 11:55 16:50 20:19 WBC (3.8-10.6) k/uL Monocytes # (Manual) (0-1.0) k/uL Metamyelocytes # (Man) (0) k/uL Myelocytes # (Manual) (0) k/uL BUN (9-20) mg/dL Glucose (74-99) mg/dL POC Glucose (mg/dL) 105 H 118 H 156 H (75-99) mg/dL CD4/CD8 Ratio (1.0-3.7) Microbiology - Last 24 Hours (Table) 12/26/18 18:00 Gram Stain - Final Scalp Wound Culture - Final 12/26/18 11:35 Blood Culture - Preliminary Blood No Growth after 48 hours Assessment and Plan (1) Rash and nonspecific skin eruption Narrative/Plan: 78 year old man with history of prostate cancer on hormonal therapy with new onset of rash to the scalp which has now progress to involve the face, chest and back.. New lesion on left leg no noted. Did use new shampoo at start of the rash of the scalp. Now is miserable because of the puritis. Will use antibiotic with ancef for the likelyhood of MSSA infection. Mupiriocin to the scalp to help with ulceration Amitriptyline added at nighttime to help with pruritus and sleep Culture to be obtained of the scalp to help further direct antibiotic therapy. Case is discussed with primary and dermatology consult was also requested. The patient has had prior shingles outbreak in the past, but does not relate this feels like that, he is having pruritus rather than discomfort. Of note he does not have fever. 12/27/2018 the patient is having some improvement. The severe pruritus has resolved with antibiotic therapy and amitriptyline at at bedtime. This will continue for now. Cultures are in process. Continue with topical therapy to the scalp. Patient complaining of some irritation to the right ear otic drops or ordered. 12/29/2018 patient is further improved is being readied for discharge to home. Patient has had a significant clinical response with utilization of Ancef, will transition to oral Keflex for home. Short course of Valtrex is also been recommended from dermatology. Will offer a short course of amitriptyline also for home if there is any further difficulty with itching which now seems to be resolved. Current Visit: Yes Status: Acute Code(s): R21 - RASH AND OTHER NONSPECIFIC SKIN ERUPTION SNOMED Code(s): 285539089
[2018-12-29 10:07] LABS: Calcium 9.3 mg/dL (8.4-10.2); Potassium 4.2 mmol/L (3.5-5.1)
[2018-12-29 11:41] LABS: Glucose,Whole Blood 125 mg/dL (75-99)
[2018-12-29 13:43] LABS: V. zoster Source Dermal - Back; Varicella zoster Virus by PCR DETECTED (Not detected)
[2018-12-29] MEDS ORDERED: diphenhydrAMINE 50 MG CAP PO SCH (18:00)
[2018-12-30 12:29] LABS: Immunoglobulin M 79.1 mg/dL (40.0-280.0)
--- NOTE | 2018-12-30 14:43 | DS ---
DISCHARGE SUMMARY DATE OF ADMISSION: 12/28/2018 DATE OF DISCHARGE: 12/29/2018 FINAL DIAGNOSES: 1. Herpes zoster infection with secondary bacterial infection. 2. Chronic obstructive pulmonary disease in a current smoker. 3. Chronic nicotine dependence. Patient smokes tobacco. 4. Obstructive sleep apnea, does not use CPAP. 5. Primary osteoarthritis. CONSULTATION: Dr. Monahan from Infectious Disease and Yaneth Patel, physician kindergarten instructional assistant from [facility] [place]. HOSPITAL COURSE: This very pleasant gentleman presented with redness, rash, boggy appearance on the scalp and some scattered lesions on the torso. It was thought to be bacterial infection, but patient's herpes zoster virus PCR did come back positive. The patient was in the hospital, treated both with acyclovir and antibiotics. Doing much better by the time of discharge. Topical Domeboro solution was also used. Care was discussed with the patient and also discussed with Dr. Monahan earlier today. The patient is feeling much better. On examination, temperature 97.7, pulse 64, respiration 18, blood pressure 97/57, pulse ox 96% on room air. Scabbing on the scalp, area of redness greatly improved. On the torso, lesions are greatly improved. INVESTIGATIONS: White cell count 11.5, hemoglobin 13.4, potassium 3.9. Varicella-zoster DNA PCR detected. Otherwise, Gram stain wound culture has been negative. DISCHARGE MEDICATIONS: 1. Prilosec 20 mg daily. 2. Hytrin 2 mg p.o. q.h.s. 3. Neurontin 300 mg q.h.s. 4. Elavil 50 mg q.h.s., 7 tablets. 5. Domeboro packets b.i.d. as directed. 6. Keflex 500 mg q.6, twenty-eight capsules. 7. Nicotine 21 mg patch. 8. Benadryl 25 mg q.i.d. p.r.n. 9. Valtrex 1000 mg t.i.d., 7 days. Follow up with Dr. Munoz on 02/12/2019. Follow up with Dr. Monahan in 1 week. Discussion and discharge planning more than 35 minutes. MMODL / IJN: [id number] /
== END 2018-12-29 13:42 | disposition home or self-care (01) | DRG 603 ==
LOC: EC 09:20 → 4MS4W 11:24 → OBSVTOIN 12-28 10:00
PROVIDERS: ADMIT Hospitalist; ATTEND Hospitalist
DX: A46 Erysipelas (principal); C79.51 Secondary malignant neoplasm of bone; G62.9 Polyneuropathy, unspecified; J44.9 Chronic obstructive pulmonary disease, unspecified; B02.9 Zoster without complications; F17.290 Nicotine dependence, other tobacco product, uncomplicated; G47.33 Obstructive sleep apnea (adult) (pediatric); K21.9 Gastro-esophageal reflux disease without esophagitis; M17.0 Bilateral primary osteoarthritis of knee; H93.13 Tinnitus, bilateral; K57.90 Diverticulosis of intestine, part unspecified, without perforation or abscess without bleeding; Z96.642 Presence of left artificial hip joint; Z87.442 Personal history of urinary calculi; Z85.46 Personal history of malignant neoplasm of prostate; Z86.19 Personal history of other infectious and parasitic diseases; Z79.899 Other long term (current) drug therapy; Z88.0 Allergy status to penicillin; Z87.01 Personal history of pneumonia (recurrent); Z90.49 Acquired absence of other specified parts of digestive tract; Z92.3 Personal history of irradiation; Z87.440 Personal history of urinary (tract) infections; Z86.010 Personal history of colon polyps; Z82.5 Family history of asthma and other chronic lower respiratory diseases; Z82.49 Family history of ischemic heart disease and other diseases of the circulatory system
CPT/HCPCS: 36415; 80048; 80053; 82784; 85025; 86355; 86357; 86359; 86360; 86787; 87040; 87070; 87205; 87798; 96365; 99284

== ENCOUNTER → 2020-06-02 | Outpatient (CLI) | payer MEDICARE ==
[2020-06-02 12:12] LABS: HCT 40.5 % (39.0-53.0); HGB 13.2 gm/dL (13.0-17.5); MCHC 32.6 g/dL (31.0-37.0); MCV 95.2 fL (80.0-100.0); Mean Platelet Volume 7.2; Platelet Count 318 k/uL (150-450); RBC 4.25 m/uL (4.30-5.90); RDW 13.2 % (11.5-15.5); WBC 12.3 k/uL (3.8-10.6)
[2020-06-02 21:15] LABS: ALT 13 U/L (10-49); AST 18 U/L (14-35); African American GFR (CKD) 93.8 (60.0-200.0); Albumin/Globulin Ratio 1.76 (1.60-3.17); Alkaline Phosphatase 98 U/L (41-126); BUN/Creat Ratio 28.89 Ratio (12.00-20.00); Bilirubin, Conjugated <0.20 mg/dL (0.20-0.40); Calcium 9.2 mg/dL (8.7-10.3); Chloride 107 mmol/L (96-109); Globulin 2.5 g/dL (1.6-3.3); Glucose 104 mg/dL (70-110); Magnesium 1.9 mg/dL (1.5-2.4); Non-African American GFR(CKD) 80.9 (60.0-200.0); Phosphorus 3.8 mg/dL (2.4-5.1); Sodium 140 mmol/L (135-145); Total Bilirubin 0.2 mg/dL (0.2-1.2); Total Protein 6.9 g/dL (6.2-8.2)
[2020-06-02 21:34] LABS: Prostate Specific Antigen <0.1 ng/mL (0.0-6.5); Testosterone <7.00 ng/dL (86.98-780.10)
== END | disposition home or self-care (01) ==
LOC: LABWHC1 11:03
PROVIDERS: ATTEND Urology
DX: C61 Malignant neoplasm of prostate (principal); C79.51 Secondary malignant neoplasm of bone
CPT/HCPCS: 36415; 80048; 80076; 82306; 83735; 84100; 84153; 84403; 85027; 87086